=== PATIENT | female | born 1985 | race Caucasian/White ===

== ENCOUNTER 2020-02-02 09:00 | Day surgery (SDC) | payer BC, OTHER ==
[2020-01-30 09:42] LABS: APPEARANCE,URINE CLEAR; BILIRUBIN,URINE NEGATIVE (NEGATIVE); COLOR,URINE YELLOW; GLUCOSE, URINE NEGATIVE (NEGATIVE); KETONES,URINE NEGATIVE (NEGATIVE); LEUKOCYTE ESTERASE,URINE NEGATIVE (NEGATIVE); NITRITE,URINE NEGATIVE (NEGATIVE); PROTEIN,URINE NEGATIVE (NEGATIVE); URINE SPECIFIC GRAVITY 1.014; UROBILINOGEN,URINE NEGATIVE mg/dL (<2.0)
[~2020-02-02 09:00] MED LIST: RINGERS SOLUTION,LACTATED 1,000 ML IV PRN
[2020-02-02 09:46] LABS: ABSOLUTE BASOPHILS # (AUTO) 0.1 10^3/uL (0.0-0.2); ABSOLUTE EOSINOPHILS # (AUTO) 0.3 10^3/uL (0.0-0.6); ABSOLUTE LYMPHOCYTES (AUTO) 1.4 10^3/uL (0.5-4.7); ABSOLUTE MONOCYTES (AUTO) 0.5 10^3/uL (0.1-1.4); ABSOLUTE NEUT (AUTO) 2.6 10^3/uL (1.7-8.2); BASOPHILS % (AUTO) 1.1 % (0-2); EOSINOPHILS % (AUTO) 5.2 % (0-6); HEMATOCRIT 35.1 % (36.0-47.0); HEMOGLOBIN 11.7 g/dL (12.0-15.5); LYMPHOCYTES % (AUTO) 29.9 % (13-45); MEAN CORPUSCULAR HEMOGLOBIN 27.5 pg (27.0-33.4); MEAN CORPUSCULAR HGB CONC 33.3 g/dL (32.0-36.0); MEAN CORPUSCULAR VOLUME 83 fl (80-97); MONOCYTES % (AUTO) 9.8 % (3-13); PLATELET COUNT 238 10^3/uL (150-450); RED BLOOD COUNT 4.25 10^6/uL (3.72-5.28); RED CELL DISTRIBUTION WIDTH 16.1 % (11.5-14.0); TOTAL CELLS COUNTED % (AUTO) 100 %; WHITE BLOOD COUNT 4.8 10^3/uL (4.0-10.5)
[2020-02-02 10:27] LABS: INTERNATIONAL RATION (INR) 1.02; PROTHROMBIN TIME 13.6 SEC (11.4-15.4)
[2020-02-02] MEDS ORDERED: FENTANYL CITRATE INJ/PF 100 MCG/2 ML AMPUL ONE (10:56)
[2020-02-02] MEDS ORDERED: MIDAZOLAM 2 MG/2 ML INJ ONE (10:56)
[2020-02-02] MEDS ORDERED: LIDOCAINE 2% INJ-PF (20 MG/ML) 10 ML AMPUL ONE (10:56)
[2020-02-02] MEDS ORDERED: ONDANSETRON HCL INJ/PF 4 MG/2 ML SDV ONE (10:57)
[2020-02-02] MEDS ORDERED: PROPOFOL INJ 200 MG/20 ML VIAL IV ONE (10:57)
[2020-02-02] MEDS ORDERED: HYDROMORPHONE HCL INJ/PF 2 MG/ML AMPULE ONE (10:57)
[2020-02-02] MEDS ORDERED: LIDOCAINE 1% INJ-PF (10 MG/ML) 30 ML SDV ONE (11:00)
[2020-02-02] MEDS ORDERED: CEFAZOLIN INJ 1 GM VIAL ONE (11:24)
[2020-02-02] MEDS ORDERED: FENTANYL CITRATE INJ/PF 100 MCG/2 ML AMPUL IV PRN ×3 (11:34)
[2020-02-02] MEDS ORDERED: DIPHENHYDRAMINE HCL 50 MG/ML VIAL IV PRN (11:34)
[2020-02-02] MEDS ORDERED: PROMETHAZINE HCL INJ 25 MG/1 ML VIAL IV PRN ×2 (11:34)
[2020-02-02] MEDS ORDERED: MORPHINE SULFATE 10 MG/ML INJ IV PRN (11:34)
[2020-02-02] MEDS ORDERED: OXYCODONE-ACETAMINOPHEN 5-325 MG TABLET PO PRN ×2 (11:34)
--- NOTE | 2020-02-02 11:42 | Operative Report ---
Operative Report DATE OF SURGERY: 02/02/20 PREOPERATIVE DIAGNOSIS: Menorrhagia POSTOPERATIVE DIAGNOSIS: Same OPERATION: Endometrial ablation SURGEON: QAMAR MONTES ANESTHESIA: GA TISSUE REMOVED OR ALTERED: None ESTIMATED BLOOD LOSS: Negligible PROCEDURE: Patient placed in a dorsolithotomy position prepped draped in usual sterile fashion. Speculum placed cervix visualized and grasped sent a depth of 8 cm. Cervix was dilated to 8 mm. The hysteroscope was placed with visualization of the anterior of the uterus with no overt abnormalities being noted. The ablation was then done with the NovaSure was set at 6.5 depth 3.5 with an burn for 55 seconds. Following this hysteroscope was then placed back in the uterus with a good rupal being noted. Barahona tenaculum was removed hemostasis was noted speculums removed and procedure terminated. Patient tolerated suture well.
[2020-02-02] MEDS ORDERED: ONDANSETRON 4 MG TAB.RAPDIS PO PRN (11:53)
[2020-02-02] MEDS ORDERED: IBUPROFEN 800 MG TABLET ONE (12:24)
[2020-02-02 13:29] VITALS: BP 122/72
[2020-02-02] MEDS ORDERED: IBUPROFEN 800 MG TABLET PO SCH (14:00)
== END 2020-02-02 13:25 | disposition home or self-care (01) ==
LOC: OROUT 09:00
PROVIDERS: ATTEND Obstetrics & Gynecology Gynecology
DX: N92.0 Excessive and frequent menstruation with regular cycle (principal); Z20.828 Contact with and (suspected) exposure to other viral communicable diseases; F32.9 Major depressive disorder, single episode, unspecified; Z98.890 Other specified postprocedural states; Z86.19 Personal history of other infectious and parasitic diseases; Z79.3 Long term (current) use of hormonal contraceptives
CPT/HCPCS: 36415 ×2; 85025; 85610; 87635; 81025; 81001; 00952; 58563; J2250; J0690; J3010; J2405; J2704; J3490; C9803; 952; J1170